=== PATIENT | female | born 1965 | race Caucasian/White ===

== ENCOUNTER → 2016-09-11 | Outpatient (CLI) | payer BC ==
--- NOTE | 2016-09-11 19:13 | CT ---
EXAMINATION TYPE: CT abdomen pelvis w con DATE OF EXAM: 09/11/2016 6:35 PM HISTORY: Right lower quadrant pain x [address] DLP: 571.20mGycm Automated Exposure Control for Dose Reduction was Utilized. CONTRAST: CT scan of the abdomen and pelvis is performed with IV Contrast, patient injected with 100 mL of Omni paque 300. COMPARISON: None. FINDINGS: LUNG BASES: No significant abnormality is appreciated. LIVER/GB: At least 4 hypoattenuated hepatic lesions are seen that are not compatible with simple hepa tic cysts. The largest is seen in segment 5 measuring up to 2.8 cm. There appears to be the beginning of peripheral discontinuous nodular enhancement which suggests hemangiomas, however these are incomp letely characterized. PANCREAS: No significant abnormality is seen. SPLEEN: A focal hypoattenuated splenic lesion is also present within the mid body that could relate t o a lymphangioma, hemangioma, or other etiology. ADRENALS: No significant abnormality is seen. KIDNEYS: No significant abnormality is seen. BOWEL: The appendix is visualized within the right lower quadrant, partially air-filled, and within n ormal limits of size without periappendiceal fat stranding. The appendix measures 6 mm with air inter bimal distending the lumen. There is thickening of the bowel at the rectosigmoid junction with sigmoid diverticula and pericoloni c fat stranding most pronounced on images 73 through 80. There is no adjacent fluid collection or jennifer dence of free air. There is focal short segment bowel wall thickening localized to the pelvis. Remain kal the bowel is nondilated without bowel wall thickening. Significant abnormality is seen. UTERUS/ADNEXA: No gross abnormality seen. LYMPH NODES: No greater than 1cm abdominal or pelvic lymph nodes are appreciated. OSSEOUS STRUCTURES: No significant abnormality is seen. OTHER: No significant additional abnormality is seen. IMPRESSION: 1. Acute uncomplicated diverticulitis at the distal sigmoid (sigmoid rectal junction low-lying within the pelvis). No evidence of adjacent fluid collection or free air. 2. Appendix is within normal limits of size, air-filled, and without periappendiceal fat stranding. 3. Multiple nonspecific hepatic lesions that may represent hepatic hemangiomas but are incompletely c haracterized. Additionally there is a similar splenic lesion. Characterization could be performed wit h dynamic contrast-enhanced CT or MRI on a nonemergent basis.
== END | disposition home or self-care (01) ==
LOC: RADCTMAIN 17:07
PROVIDERS: ATTEND Family Medicine
DX: K57.32 Diverticulitis of large intestine without perforation or abscess without bleeding (principal); D73.89 Other diseases of spleen; K76.89 Other specified diseases of liver
CPT/HCPCS: 74177; Q9967

== ENCOUNTER → 2016-09-28 | Outpatient (CLI) | payer BC | END | disposition home or self-care (01) | LOC: RADMRIMAIN 17:48 | PROVIDERS: ATTEND Family Medicine | DX: Z53.9 Procedure and treatment not carried out, unspecified reason (principal) ==

== ENCOUNTER → 2017-03-21 | Outpatient (CLI) | payer BC ==
--- NOTE | 2017-03-21 11:17 | P.HPOB ---
History of Present Illness H&P Date: 03/21/17 Chief Complaint: The patient is here for her routine gynecologic exam and mammogram. This is a 51-year-old within LMP of 12/2015. She is without gynecologic complaints. She states she was having hot flashes in the past but these have improved. She no longer is experiencing cyclic breast tenderness or cramping. She is status post endometrial ablation and has had very scant or no periods since then. She has not had any vaginal bleeding over the last 14 months. Review of Systems Weight has been stable. She denies respiratory, cardiac, or G.I. problems. Past Medical History Past Medical History: GERD/Reflux Additional Past Medical History / Comment(s): History of Mnire's disease. History of Any Multi-Drug Resistant Organisms: None Reported Past Surgical History: Orthopedic Surgery Additional Past Surgical History / Comment(s): RT BUNION SX. Also history of endometrial ablation in 2006 and upper endoscopy in 2015. 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 She is expecting her 4th grandchild in 04/15. - Past Family History Father Family Medical History: Cancer (Maternal aunt had breast cancer and another maternal aunt had liver cancer.) Additional Family Medical History / Comment(s): PROSTATE Medications and Allergies Home Medications and Allergies Comment(s): She also takes vitamin D supplements 1 daily and vitamin C supplement 1 daily. Home Medications Medication Instructions Recorded Confirmed Type ALPRAZolam [Alprazolam] 0.25 mg PO DIRECTED PRN 02/15/16 02/15/16 History Hydrochlorothiazide 12.5 mg PO DIRECTED PRN 02/15/16 02/15/16 History [Hydrochlorothiazide] Pantoprazole [Protonix] 40 mg PO DAILY 02/15/16 02/15/16 History Allergies Allergy/AdvReac Type Severity Reaction Status Date / Time No Known Allergies Allergy Verified 02/15/16 16:17 Exam - Vital Signs Vital signs: Blood pressure 113/74 height 5 feet 10 1/2 inches weight 168 pounds BMI 23 temperature 98.0 pulse 64. This is a well-developed well-nourished white female who is alert and oriented times 3 in no acute distress. HEENT: Within normal limits. NECK: Supple without mass or thyromegaly. CHEST AND LUNGS: Clear to auscultation. HEART: Regular rate and rhythm. BREASTS: Are without mass or discharge. AXILLARY EXAM: Negative for adenopathy. BACK: Negative for CVA tenderness. ABDOMEN: Soft, nontender, without palpable masses. PELVIC EXAM: Normal external genitalia . Cervix and vagina appear normal . There is no unusual discharge. There is no evidence of prolapse. The uterus is midposition, nongravid size and nontender. There are no palpable adnexal masses or tenderness. RECTAL EXAM: negative for mass or tenderness and is negative for occult blood. EXTREMITIES: Nontender. IMPRESSION: 1. 51 year old female with normal gynecologic exam 2. Amenorrhea which probably represents early menopause. This also may represent amenorrhea secondary to the endometrial ablation. PLAN: 1. Pap smear was deferred since she had a normal one last year. 2. Self breast examination was discussed. 3. Mammogram will be done today. 4. FSH will be drawn today. She is also requesting screening labs be done. This will include cholesterol, comprehensive chemistry panel, CBC and TSH. 5. Osteoporosis prevention was discussed. 6. She will return in one year.
[2017-03-21 12:28] LABS: CH 30.3; CHCM 33.2; HCT 42.2 % (34.0-46.0); HDW 2.35; HGB 13.7 gm/dL (11.4-16.0); MCH 29.7 pg (25.0-35.0); MCHC 32.5 g/dL (31.0-37.0); MCV 91.5 fL (80.0-100.0); Mean Platelet Volume 7.6; RBC 4.61 m/uL (3.80-5.40); RDW 12.2 % (11.5-15.5); WBC 5.4 k/uL (3.8-10.6)
[2017-03-21 12:47] LABS: ALT 30 U/L (9-52); AST 19 U/L (14-36); Alkaline Phosphatase 57 U/L (38-126); Anion Gap 7 mmol/L; Blood Urea Nitrogen 21 mg/dL (7-17); Calcium 9.6 mg/dL (8.4-10.2); Carbon Dioxide 33 mmol/L (22-30); Chloride 101 mmol/L (98-107); Cholesterol 250 mg/dL (<200); Glucose 87 mg/dL (74-99); Non-African American GFR(MDRD) >60 (>60 ml/min/1.73 sqM); Potassium 4.6 mmol/L (3.5-5.1); Sodium 141 mmol/L (137-145); Total Bilirubin 0.8 mg/dL (0.2-1.3); Total Protein 7.1 g/dL (6.3-8.2)
--- NOTE | 2017-03-26 07:28 | MM ---
Reason for exam: screening (asymptomatic). Last mammogram was performed 1 year ago. History: Patient is postmenopausal. Family history of breast cancer in paternal grandmother at age 55 and breast cancer in maternal aunt. Physical Findings: A clinical breast exam by your physician is recommended on an annual basis and results should be correlated with mammographic findings. MG 3D Screening Mammo W/Cad Bilateral CC and MLO view(s) were taken. Prior study comparison: March 07, 2016, bilateral MG 3d screening mammo w/cad. March 03, 2015, bilateral MG 3d screening mammo w/cad. January 09, 2014, right breast US breast workup RT. The breast tissue is heterogeneously dense. This may lower the sensitivity of mammography. Finding: There are stable typically benign masses in both breasts. No suspicious abnormality. No significant changes in finding since March 07, 2016, March 03, 2015, and January 09, 2014. ASSESSMENT: Benign, BI-RAD 2 RECOMMENDATION: Routine screening mammogram of both breasts in 1 year.
== END | disposition home or self-care (01) ==
LOC: WWCWWP 10:00
PROVIDERS: ATTEND Obstetrics & Gynecology
DX: Z12.31 Encounter for screening mammogram for malignant neoplasm of breast (principal); Z00.00 Encounter for general adult medical examination without abnormal findings; N91.1 Secondary amenorrhea
CPT/HCPCS: 80053; 84443; 83001; 82465; 85027; 77063; G0202

== ENCOUNTER → 2018-04-02 | Outpatient (CLI) | payer BC ==
[2018-04-02 08:58] VITALS: BP 109/52; PULSE 56; TEMP 96.7; BMI 23.5
--- NOTE | 2018-04-02 09:29 | P.HPOB ---
History of Present Illness H&P Date: 04/02/18 Chief Complaint: The patient is here for her routine gynecologic exam and mammogram. This is a 52-year-old with an LMP of 2016. The patient states her hot flashes continue to improve, but she does have some infrequently. She denies any postmenopausal bleeding. She is without gynecologic complaints. Review of Systems The patient has lost 4 pounds over the last year. She denies respiratory, cardiac, or G.I. problems. Past Medical History Past Medical History: GERD/Reflux Additional Past Medical History / Comment(s): History of Mnire's disease. History of Any Multi-Drug Resistant Organisms: None Reported Past Surgical History: Orthopedic Surgery Additional Past Surgical History / Comment(s): RT BUNION SX. Also history of endometrial ablation in 2006 and upper endoscopy in 2015. 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 She has 4 grandchildren. - Past Family History Father Family Medical History: Cancer Additional Family Medical History / Comment(s): PROSTATE Sister(s) Family Medical History: Myocardial Infarction ([place]) Mother Family Medical History: No Reported History Additional Family Medical History / Comment(s): 1 maternal aunt had breast cancer and another maternal aunt had liver cancer. Medications and Allergies Home Medications Medication Instructions Recorded Confirmed Type Hydrochlorothiazide 12.5 mg PO DIRECTED PRN 02/15/16 04/02/18 History Allergies Allergy/AdvReac Type Severity Reaction Status Date / Time No Known Allergies Allergy Verified 04/02/18 08:50 Exam Vital Signs Temp Pulse BP 04/02/18 08:53 96.7 F L 56 L 109/52 Intake and Output 04/01/18 04/02/18 04/02/18 22:59 06:59 14:59 Other: Weight 74.389 kg Height 5'10", weight 164 pounds, BMI 23.5. This is a well-developed well-nourished white female who is alert and oriented times 3 in no acute distress. HEENT: Within normal limits. NECK: Supple without mass or thyromegaly. CHEST AND LUNGS: Clear to auscultation. HEART: Regular rate and rhythm. BREASTS: Are without mass or discharge. AXILLARY EXAM: Negative for adenopathy. BACK: Negative for CVA tenderness. ABDOMEN: Soft, nontender, without palpable masses. PELVIC EXAM: Normal external genitalia. Cervix and vagina appear normal. There is no unusual discharge. There is no evidence of prolapse. The uterus is midposition, nongravid size and nontender. There are no palpable adnexal masses or tenderness. RECTAL EXAM: rectovaginal exam is negative for mass or tenderness and is negative for occult blood. EXTREMITIES: Nontender. IMPRESSION: 1. 52-year-old menopausal female with normal gynecologic exam. PLAN: 1. Pap smear was performed. 2. Self breast awareness was discussed with the patient. 3. Screening mammogram will be done today. 4. I have recommended screening colonoscopy based on her age. She will speak with her primary caregiver about this. 5. Osteoporosis prevention was discussed. I have stressed the importance of adequate calcium, vitamin D and regular exercise. Recommended amounts of calcium and vitamin D were also discussed. 6. She will return in one year.
--- NOTE | 2018-04-03 08:16 | MM ---
Reason for exam: screening (asymptomatic). Last mammogram was performed 1 year ago. History: Patient is postmenopausal. Family history of breast cancer in paternal grandmother at age 55 and breast cancer in maternal aunt. Physical Findings: A clinical breast exam by your physician is recommended on an annual basis and results should be correlated with mammographic findings. MG 3D Screening Mammo W/Cad Bilateral CC and MLO view(s) were taken. Prior study comparison: March 21, 2017, bilateral MG 3d screening mammo w/cad. March 07, 2016, bilateral MG 3d screening mammo w/cad. The breast tissue is heterogeneously dense. This may lower the sensitivity of mammography. There is chronic nodularity in the right breast. No significant changes when compared with prior studies. ASSESSMENT: Benign, BI-RAD 2 RECOMMENDATION: Routine screening mammogram of both breasts in 1 year.
--- NOTE | 2018-04-09 17:21 | P.PN ---
Progress Note - Text Progress Note Date: 04/09/18 OUTPATIENT FOLLOW-UP NOTE TEST(S)/RESULTS: test results from 04/02/2018 include negative Pap smear and benign mammogram. METHOD OF NOTIFICATION: the patient was notified by phone. PATIENT COMMENTS: the patient had questions about dense breast tissue as noted on her mammogram. DIAGNOSIS: negative Pap smear and benign mammogram. DISCUSSION: I have recommended that she continue yearly mammograms and this may be best done with 3-D mammography with her dense breast tissue. I am not recommending any other breast screening at this time for dense breast tissue. PLAN: she is to return in one year for her annual well woman exam.
== END ==
LOC: WWCWWP 08:27
PROVIDERS: ATTEND Obstetrics & Gynecology
DX: Z12.31 Encounter for screening mammogram for malignant neoplasm of breast (principal)
CPT/HCPCS: 77063; 77067

== ENCOUNTER 2018-11-20 09:18 | Day surgery (SDC) | payer BC ==
[2018-11-18 11:52] VITALS: BMI 23.4
[~2018-11-20 09:18] MED LIST: LACTATED RINGERS 1,000 ML IV SCH; LIDOCAINE 1% 20 ML VIAL (10MG/ML) FOR IV START INTRADERMA PRN
[2018-11-20 10:09] VITALS: TEMP 98
[2018-11-20] MEDS ORDERED: LIDOCAINE 1% INJ 10MG/ML (20 ML MDV) ONE (10:38)
[2018-11-20] MEDS ORDERED: PROPOFOL 10 MG/ML 20 ML VIAL IV ONE (10:38)
--- NOTE | 2018-11-20 10:57 | P.PCN ---
Date of Procedure: 11/20/18 Procedure(s) Performed: BRIEF HISTORY: Patient is a 53-year-old pleasant white female, scheduled for an elective colonoscopy as a part of screening for colon cancer. PROCEDURE PERFORMED: Colonoscopy with snare polypectomy. PREOPERATIVE DIAGNOSIS: Screening for colon cancer. IV sedation per Anesthesia. PROCEDURE: After informed consent was obtained, the patient, was brought into the endoscopy unit. IV sedation was administered by Anesthesia under continuous monitoring. Digital rectal examination was normal. Initially the Olympus CF-160 flexible video colonoscope was then inserted in the rectum, gradually advanced into the cecum without any difficulty. Careful examination was performed as the scope was gradually being withdrawn. Ileocecal valve and the appendiceal orifice were visualized and appeared normal. Prep was excellent. Mucosa of the cecum, ascending colon, appeared normal. In the hepatic flexure there was a 1 cm broad-based polyp that was removed by snare polypectomy. Rest of the transverse colon, descending colon, sigmoid colon, and rectum appeared normal. Retroflexion was performed in the rectum and no lesions were seen. The patient tolerated the procedure well. IMPRESSION: 1 cm hepatic flexure polyp status post polypectomy Rest of the colon appeared normal RECOMMENDATIONS: Findings of this examination were discussed with the patient as well as a family. She was advised to follow with the biopsy results. The biopsy shows an adenoma, she can have a repeat colonoscopy in 3-5 years.
[2018-11-20 11:04] VITALS: RESP 16
[2018-11-20 11:32] VITALS: BP 106/70; PULSE 56
== END 2018-11-20 11:42 | disposition home or self-care (01) ==
LOC: ORWHC2ENDO 09:18
PROVIDERS: ATTEND Internal Medicine Gastroenterology
DX: Z12.11 Encounter for screening for malignant neoplasm of colon (principal); D12.3 Benign neoplasm of transverse colon; Z79.899 Other long term (current) drug therapy; H81.09 Meniere's disease, unspecified ear
CPT/HCPCS: 81025; 45385; J2001; J2704; 88305

== ENCOUNTER → 2019-05-13 | Outpatient (CLI) | payer BC ==
[2019-05-13 09:02] VITALS: BP 132/79; PULSE 52; RESP 16; TEMP 98.1
--- NOTE | 2019-05-13 09:30 | P.HPOB ---
History of Present Illness H&P Date: 05/13/19 Chief Complaint: The patient is here for her routine gynecologic exam and ma mmogram. This is a 53-year-old with an LMP of 2016. The patient is without gynecologic complaints. She states her hot flashes are decreasing and are very infrequent and mild. She denies any postmenopausal bleeding. Review of Systems The patient's weight has been stable over the last year. She denies respiratory, cardiac, or G.I. problems. Past Medical History Past Medical History: GERD/Reflux Additional Past Medical History / Comment(s): History of Mnire's disease. 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 History of Any Multi-Drug Resistant Organisms: None Reported Past Surgical History: Orthopedic Surgery Additional Past Surgical History / Comment(s): RT BUNION SX, endometrial ablation, EGD. 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 She has 6 grandchildren. - Past Family History Father Family Medical History: Cancer Additional Family Medical History / Comment(s): PROSTATE Cancer. Sister(s) Family Medical History: Myocardial Infarction ([place]) Mother Family Medical History: No Reported History Additional Family Medical History / Comment(s): 1 maternal aunt had breast cancer and another maternal aunt had liver cancer. Medications and Allergies Home Medications Medication Instructions Recorded Confirmed Type Hydrochlorothiazide 12.5 mg PO QAM 02/15/16 05/13/19 History Cholecalciferol (Vitamin D3) 2,000 unit PO DAILY 05/13/19 05/13/19 History [Vitamin D3] Cyanocobalamin [Vitamin B-12] 500 mcg PO DAILY 05/13/19 05/13/19 History Multivitamin [Multivitamins Adult 1 each PO DAILY 05/13/19 05/13/19 History Gummies] Allergies Allergy/AdvReac Type Severity Reaction Status Date / Time No Known Allergies Allergy Verified 05/13/19 09:02 Exam Vital Signs Temp Pulse Resp BP Pulse Ox 05/13/19 09:00 98.1 F 52 L 16 132/79 100 Intake and Output 05/12/19 05/13/19 05/13/19 22:59 06:59 14:59 Other: Weight 74.843 kg Height 5 feet 10 inches, weight 165 pounds, BMI 23.7. This is a well-developed well-nourished white female who is alert and oriented times 3 in no acute distress. HEENT: Within normal limits. NECK: Supple without mass or thyromegaly. CHEST AND LUNGS: Clear to auscultation. HEART: Regular rate and rhythm. BREASTS: Are without mass or discharge. AXILLARY EXAM: Negative for adenopathy. BACK: Negative for CVA tenderness. ABDOMEN: Soft, nontender, without palpable masses. PELVIC EXAM: Normal external genitalia with minimal atrophy. Cervix and vagina appear normal is minimal atrophy. There is no unusual discharge. There is no evidence of prolapse. The uterus is midposition, nongravid size and nontender. There are no palpable adnexal masses or tenderness. RECTAL EXAM: Rectovaginal exam is negative for mass or tenderness and is negative for occult blood. EXTREMITIES: Nontender. IMPRESSION: 1. 53-year-old menopausal female with normal gynecologic exam. PLAN: 1. Pap smear was deferred since she had a normal one on 04/02/2018. 2. Self breast awareness was discussed with the patient. 3. Screening mammogram will be done today. 4. Osteoporosis prevention was discussed. I have stressed the importance of adequate calcium, vitamin D and regular exercise. Recommended amounts of calcium and vitamin D were also discussed. 5. She was advised to return in one year for her annual well woman exam.
--- NOTE | 2019-05-14 11:52 | MM ---
Reason for exam: screening (asymptomatic). Last mammogram was performed 1 year and 1 month ago. History: Patient is postmenopausal. Family history of breast cancer in paternal grandmother at age 55 and breast cancer in maternal aunt. Physical Findings: A clinical breast exam by your physician is recommended on an annual basis and results should be correlated with mammographic findings. MG 3D Screening Mammo W/Cad Bilateral CC and MLO view(s) were taken. Prior study comparison: April 02, 2018, bilateral MG 3d screening mammo w/cad. March 21, 2017, bilateral MG 3d screening mammo w/cad. The breast tissue is heterogeneously dense. This may lower the sensitivity of mammography. There are benign appearing round calcifications in the right breast. There is chronic nodularity in the right breast. There is no discrete abnormality. ASSESSMENT: Benign, BI-RAD 2 RECOMMENDATION: Routine screening mammogram of both breasts in 1 year.
== END | disposition home or self-care (01) ==
LOC: WWCWWP 08:33
PROVIDERS: ATTEND Obstetrics & Gynecology
DX: Z12.31 Encounter for screening mammogram for malignant neoplasm of breast (principal)
CPT/HCPCS: 77063; 77067

== ENCOUNTER → 2020-07-21 | Outpatient (CLI) | payer BC ==
[2020-07-21 08:05] VITALS: BP 129/74; PULSE 58; RESP 16; TEMP 98
--- NOTE | 2020-07-21 08:50 | P.HPOB ---
History of Present Illness H&P Date: 07/21/20 Chief Complaint: The patient is here for her routine gynecologic exam and ma mmogram. This is a 55-year-old with an LMP of 2016. The patient has been experiencing sore breasts when she holds somebody or when the breasts are touched. She denies feeling any abnormal lumps and also denies any leaking or bleeding from the nipples. She does not take hormone replacement therapy or any supplements for menopausal symptoms. She denies any trauma to the breasts. She is otherwise without complaints and denies any postmenopausal bleeding. Review of Systems The patient has gained 5 pounds over the last year. She denies respiratory, cardiac, or G.I. problems. Past Medical History Past Medical History: GERD/Reflux Additional Past Medical History / Comment(s): History of Mnire's disease. 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 History of Any Multi-Drug Resistant Organisms: None Reported Past Surgical History: Orthopedic Surgery Additional Past Surgical History / Comment(s): BL BUNION SX and foot surgery, endometrial ablation, EGD. 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 She has 7 grandchildren. - Past Family History Father Family Medical History: Cancer Additional Family Medical History / Comment(s): PROSTATE Cancer. Sister(s) Family Medical History: Myocardial Infarction ([place]) Mother Family Medical History: No Reported History Additional Family Medical History / Comment(s): 1 maternal aunt had breast cancer and another maternal aunt had liver cancer. Medications and Allergies Home Medications Medication Instructions Recorded Confirmed Type hydroCHLOROthiazide 12.5 mg PO QAM 02/15/16 07/21/20 History [Hydrochlorothiazide] Cholecalciferol (Vitamin D3) 2,000 unit PO DAILY 05/13/19 07/21/20 History [Vitamin D3] Cyanocobalamin [Vitamin B-12] 500 mcg PO DAILY 05/13/19 07/21/20 History Multivitamin [Multivitamins Adult 1 each PO DAILY 05/13/19 07/21/20 History Gummies] Allergies Allergy/AdvReac Type Severity Reaction Status Date / Time No Known Allergies Allergy Verified 07/21/20 07:58 Exam Vital Signs Temp Pulse Resp BP Pulse Ox 07/21/20 07:59 98.0 F 58 L 16 129/74 99 Intake and Output 07/20/20 07/21/20 07/21/20 22:59 06:59 14:59 Other: Weight 77.111 kg Height 5 feet 11 inches, weight 170 pounds, BMI 23.7. This is a well-developed well-nourished white female who is alert and oriented times 3 in no acute distress. HEENT: Within normal limits. NECK: Supple without mass or thyromegaly. CHEST AND LUNGS: Clear to auscultation. HEART: Regular rate and rhythm. BREASTS: Are without mass or discharge. There is no dimpling and the breasts are nontender. AXILLARY EXAM: Negative for adenopathy. BACK: Negative for CVA tenderness. ABDOMEN: Soft, nontender, without palpable masses. PELVIC EXAM: Normal external genitalia with minimal atrophy. Cervix and vagina appear normal and minimal atrophy. There is no unusual discharge. There is no evidence of prolapse. The uterus is midposition, nongravid size and nontender. There are no palpable adnexal masses or tenderness. RECTAL EXAM: Rectovaginal exam is negative for mass or tenderness and is negative for occult blood. EXTREMITIES: Nontender. IMPRESSION: 1. 55-year-old menopausal female with normal gynecologic exam. 2. Recent bilateral breast soreness with no significant physical findings on exam today. PLAN: 1. Pap smear cotest was performed. 2. Self breast awareness was discussed with the patient. She states she does drink coffee each morning. I have discussed that she could try to avoid caffeine altogether to see if this helps with the breast soreness. I have tried to reassure her that breast soreness is not common symptom of breast cancer. 3. Screening mammogram will be done today. 4. Osteoporosis prevention was discussed. I have stressed the importance of adequate calcium, vitamin D and regular exercise. Recommended amounts of calcium and vitamin D were also discussed. 5. She was advised to return in one year for her annual well woman exam.
--- NOTE | 2020-07-21 13:25 | MM ---
Reason for exam: screening (asymptomatic). Last mammogram was performed 1 year and 2 months ago. History: Patient is postmenopausal. Family history of breast cancer in paternal grandmother at age 55 and breast cancer in maternal aunt. Physical Findings: A clinical breast exam by your physician is recommended on an annual basis and results should be correlated with mammographic findings. MG 3D Screening Mammo W/Cad Bilateral CC and MLO view(s) were taken. Prior study comparison: May 13, 2019, bilateral MG 3d screening mammo w/cad. April 02, 2018, bilateral MG 3d screening mammo w/cad. The breast tissue is heterogeneously dense. This may lower the sensitivity of mammography. Focal asymmetry lower outer quadrant left breast zone C. ASSESSMENT: Incomplete: need additional imaging evaluation, BI-RAD 0 RECOMMENDATION: Special view mammogram of the left breast. If lesion persists on supplemental views, image directed ultrasound is recommended. [facility] will attempt to contact patient to return for supplemental views and ultrasound if indicated.
== END ==
LOC: WWCWWP 07:49
PROVIDERS: ATTEND Obstetrics & Gynecology
DX: Z12.31 Encounter for screening mammogram for malignant neoplasm of breast (principal)
CPT/HCPCS: 77063; 77067

== ENCOUNTER → 2020-07-30 | Outpatient (CLI) | payer BC ==
--- NOTE | 2020-07-30 13:26 | MM ---
Reason for exam: additional evaluation requested from abnormal screening. Last mammogram was performed less than 1 month ago. History: Patient is postmenopausal. Family history of breast cancer in paternal grandmother at age 55 and breast cancer in maternal aunt. Physical Findings: Nurse did not find any significant physical abnormalities on exam. MG 3D Work Up W/Cad LT Spot compression CC, spot compression MLO, and LM view(s) were taken of the left breast. Prior study comparison: July 21, 2020, bilateral MG 3d screening mammo w/cad. May 13, 2019, bilateral MG 3d screening mammo w/cad. The breast tissue is heterogeneously dense. This may lower the sensitivity of mammography. No persisting abnormality in the upper outer quadrant on additional views. These results were verbally communicated with the patient and result sheet given to the patient on 07/30/20. ASSESSMENT: Negative, BI-RAD 1 RECOMMENDATION: Return to routine screening mammogram schedule for both breasts.
== END | disposition home or self-care (01) ==
LOC: RADMAMWWP 07:28
PROVIDERS: ATTEND Obstetrics & Gynecology
DX: R92.2 Inconclusive mammogram (principal); Z78.0 Asymptomatic menopausal state; Z80.3 Family history of malignant neoplasm of breast
CPT/HCPCS: 77061; 77065

== ENCOUNTER → 2021-08-30 | Outpatient (CLI) | payer BC ==
[2021-08-30 14:17] VITALS: BP 125/78; PULSE 66; RESP 17; TEMP 97.8
--- NOTE | 2021-08-30 14:47 | P.HPOB ---
History of Present Illness H&P Date: 08/30/21 Chief Complaint: The patient is here for her routine gynecologic exam and ma mmogram. This is a 56-year-old with an LMP of 2016. The patient is without gynecologic complaints and denies any postmenopausal bleeding. Review of Systems The patient has lost 6 pounds over the last year. She denies respiratory, cardiac, or G.I. problems. Past Medical History Past Medical History: GERD/Reflux Additional Past Medical History / Comment(s): History of Mnire's disease. 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 History of Any Multi-Drug Resistant Organisms: None Reported Past Surgical History: Orthopedic Surgery Additional Past Surgical History / Comment(s): BL BUNION SX and foot surgery, endometrial ablation, EGD. 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 - Past Family History Father Family Medical History: Cancer Additional Family Medical History / Comment(s): PROSTATE Cancer. Sister(s) Family Medical History: Myocardial Infarction ([place]) Mother Family Medical History: No Reported History Additional Family Medical History / Comment(s): 1 maternal aunt had breast cancer and another maternal aunt had liver cancer. Medications and Allergies Home Medications Medication Instructions Recorded Confirmed Type hydroCHLOROthiazide 12.5 mg PO QAM 02/15/16 08/30/21 History [Hydrochlorothiazide] Cholecalciferol (Vitamin D3) 2,000 unit PO DAILY 05/13/19 08/30/21 History [Vitamin D3] Cyanocobalamin [Vitamin B-12] 500 mcg PO DAILY 05/13/19 08/30/21 History Multivitamin [Multivitamins Adult 1 each PO DAILY 05/13/19 08/30/21 History Gummies] Allergies Allergy/AdvReac Type Severity Reaction Status Date / Time No Known Allergies Allergy Verified 08/30/21 14:13 Exam Vital Signs Temp Pulse Resp BP Pulse Ox 08/30/21 14:15 97.8 F 66 17 125/78 99 Intake and Output 08/29/21 08/30/21 08/30/21 22:59 06:59 14:59 Other: Weight 74.389 kg Height 5 feet 10 inches, weight 164 pounds, BMI 23.5. This is a well-developed well-nourished white female who is alert and oriented times 3 in no acute distress. HEENT: Within normal limits. NECK: Supple without mass or thyromegaly. CHEST AND LUNGS: Clear to auscultation. HEART: Regular rate and rhythm. BREASTS: Are without mass or discharge. AXILLARY EXAM: Negative for adenopathy. BACK: Negative for CVA tenderness. ABDOMEN: Soft, nontender, without palpable masses. PELVIC EXAM: Normal external genitalia with minimal atrophy. Cervix and vagina appear normal with minimal atrophy. There is no unusual discharge. There is no evidence of prolapse. The uterus is midposition, nongravid size and nontender. There are no palpable adnexal masses or tenderness. RECTAL EXAM: Rectovaginal exam is negative for mass or tenderness and is negative for occult blood. EXTREMITIES: Nontender. IMPRESSION: 1. 56-year-old menopausal female with normal gynecologic exam. PLAN: 1. Pap smear was deferred since she had a negative Pap smear cotest on 07/21/2020. 2. Self breast awareness was discussed with the patient. We have also discussed symptoms associated with inflammatory breast cancer. 3. Screening mammogram will be done today. 4. Osteoporosis prevention was discussed. I have stressed the importance of adequate calcium, vitamin D and regular exercise. Recommended amounts of calcium and vitamin D were also discussed. 5. She was advised to return in one year for her annual well woman exam.
--- NOTE | 2021-09-02 09:42 | MM ---
Reason for exam: screening (asymptomatic). Last mammogram was performed 1 year and 1 month ago. History: Patient is postmenopausal. Family history of breast cancer in paternal grandmother at age 55 and breast cancer in maternal aunt. Physical Findings: A clinical breast exam by your physician is recommended on an annual basis and results should be correlated with mammographic findings. MG 3D Screening Mammo W/Cad Bilateral CC and MLO view(s) were taken. Prior study comparison: July 30, 2020, left breast MG 3d work up w/cad LT. July 21, 2020, bilateral MG 3d screening mammo w/cad. There are scattered fibroglandular densities. There is chronic nodularity in the right breast. No significant changes when compared with prior studies. ASSESSMENT: Benign, BI-RAD 2 RECOMMENDATION: Routine screening mammogram of both breasts in 1 year.
== END | disposition home or self-care (01) ==
LOC: RADMAMWWP 13:52
PROVIDERS: ATTEND Obstetrics & Gynecology
DX: Z12.31 Encounter for screening mammogram for malignant neoplasm of breast (principal)
CPT/HCPCS: 77063; 77067

== ENCOUNTER → 2022-10-10 | Outpatient (CLI) | payer BC ==
[2022-10-10 08:08] VITALS: BP 118/53; PULSE 74; RESP 18; TEMP 97.8
--- NOTE | 2022-10-10 08:31 | P.HPOB ---
History of Present Illness H&P Date: 10/10/22 Chief Complaint: The patient is here for her routine gynecologic exam and ma mmogram. This is a 57-year-old with an LMP of 2016. The patient is without gynecologic complaints and denies any postmenopausal bleeding. She occasionally will notice a hot flashes at night but this is not a big problem for her. Review of Systems The patient's weight has been stable over the last year. She denies respiratory, cardiac, or G.I. problems. Past Medical History Past Medical History: GERD/Reflux Additional Past Medical History / Comment(s): History of Mnire's disease. Hiatal hernia. 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 History of Any Multi-Drug Resistant Organisms: None Reported Past Surgical History: Orthopedic Surgery Additional Past Surgical History / Comment(s): BL BUNION SX and foot surgery, endometrial ablation, EGD. Colonoscopy 2018(next after 5yr). Upper endoscopy 2022. 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 - Past Family History Father Family Medical History: Cancer Additional Family Medical History / Comment(s): PROSTATE Cancer. Sister(s) Family Medical History: Myocardial Infarction ([place]) Mother Family Medical History: No Reported History Additional Family Medical History / Comment(s): 1 maternal aunt had breast cancer and another maternal aunt had liver cancer. Medications and Allergies Home Medications Medication Instructions Recorded Confirmed Type hydroCHLOROthiazide 12.5 mg PO QAM 02/15/16 10/10/22 History [Hydrochlorothiazide] Cholecalciferol (Vitamin D3) 2,000 unit PO DAILY 05/13/19 10/10/22 History [Vitamin D3] Cyanocobalamin [Vitamin B-12] 500 mcg PO DAILY 05/13/19 10/10/22 History Multivitamin [Multivitamins Adult 1 each PO DAILY 05/13/19 10/10/22 History Gummies] Atorvastatin [Lipitor] 10 mg PO HS 10/10/22 10/10/22 History Allergies Allergy/AdvReac Type Severity Reaction Status Date / Time No Known Allergies Allergy Verified 10/10/22 08:02 Exam Vital Signs Temp Pulse Resp BP Pulse Ox 10/10/22 08:03 97.8 F 74 18 118/53 98 Intake and Output 10/09/22 10/10/22 10/10/22 22:59 06:59 14:59 Other: Weight 73.482 kg Height 5 feet 10-1/2 inches, weight 162 pounds, BMI 22.9. This is a well-developed well-nourished white female who is alert and oriented times 3 in no acute distress. HEENT: Within normal limits. NECK: Supple without mass or thyromegaly. CHEST AND LUNGS: Clear to auscultation. HEART: Regular rate and rhythm. BREASTS: Are without mass or discharge. AXILLARY EXAM: Negative for adenopathy. BACK: Negative for CVA tenderness. ABDOMEN: Soft, nontender, without palpable masses. PELVIC EXAM: Normal external genitalia. Cervix and vagina appear normal. There is no unusual discharge. There is no evidence of prolapse. The uterus is midposition, nongravid size and nontender. There are no palpable adnexal masses or tenderness. RECTAL EXAM: Rectovaginal exam is negative for mass or tenderness and is negative for occult blood. EXTREMITIES: Nontender. IMPRESSION: 1. 57-year-old menopausal female with normal gynecologic exam. PLAN: 1. Pap smear was deferred since she had a negative Pap smear cotest on 07/21/2020. 2. Breast awareness was discussed with the patient. The symptoms associated with inflammatory breast cancer was also discussed. 3. Screening mammogram will be done today. 4. Osteoporosis prevention was discussed. I have stressed the importance of adequate calcium, vitamin D and regular exercise. Recommended amounts of calcium and vitamin D were also discussed. 5. She was advised to return in one year for her annual well woman exam.
--- NOTE | 2022-10-11 08:53 | MM ---
Reason for Exam: Screening (asymptomatic). Last mammogram was performed 1 year(s) and 1 month(s) ago. Patient History: Menarche at age 16. First Full-Term at age 21. Postmenopausal. Patient has history of breast feeding. Paternal grandmother had breast cancer, age 55. Maternal aunt had breast cancer, age 56. Risk Values: Renata 5 year model risk: 0.8%. NCI Lifetime model risk: 5.5%. Prior Study Comparison: 07/21/2020 Bilateral Screening Mammogram, [facility]. 07/30/2020 Left Diagnostic Mammogram, [facility]. 08/30/2021 Bilateral Screening Mammogram, [facility]. Tissue Density: The breast tissue is heterogeneously dense. This may lower the sensitivity of mammography. Findings: Analyzed By CAD. There is no suspicious group of microcalcifications or new suspicious mass in either breast. Overall Assessment: Benign, BI-RAD 2 Management: Screening Mammogram of both breasts in 1 year. . Patient should continue monthly self-breast exams. A clinical breast exam by your physician is recommended on an annual basis. This exam should not preclude additional follow-up of suspicious palpable abnormalities. Note on Renata scores and lifetime risk: 1. A Renata score greater than 3% is considered moderate risk. If this is the case, consider specialist referral to assess eligibility for a risk reducing agent. 2. If overall lifetime risk for the development of breast cancer is 20% or higher, the patient may qualify for future screening with alternating mammogram and breast MRI. Electronically signed and approved by: Jayesh Palacios M.D. Radiologis
== END ==
LOC: WWCWWP 07:49
PROVIDERS: ATTEND Obstetrics & Gynecology
DX: Z12.31 Encounter for screening mammogram for malignant neoplasm of breast (principal); Z01.411 Encounter for gynecological examination (general) (routine) with abnormal findings; K21.9 Gastro-esophageal reflux disease without esophagitis
CPT/HCPCS: 77063; 77067

== ENCOUNTER → 2023-10-31 | Outpatient (CLI) | payer BC ==
[2023-10-31 08:14] VITALS: BP 118/79; PULSE 71; RESP 16; TEMP 98
--- NOTE | 2023-10-31 08:40 | P.HPOB ---
History of Present Illness H&P Date: 10/31/23 Chief Complaint: The patient is here for her routine gynecologic exam and ma mmogram. This is a 58-year-old G4, P4 with an LMP of 2016. Patient is without gynecologic complaints. She has noticed some joint discomfort and was wondering if this is related to her menopause. Review of Systems The patient has gained 11 pounds over the last year. She denies respiratory, cardiac, or G.I. problems. Musculoskeletal: She has been having some joint d iscomfort. She has seen a bog cutter regarding this. Past Medical History Past Medical History: GERD/Reflux Additional Past Medical History / Comment(s): History of Mnire's disease. Hiatal hernia. 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 History of Any Multi-Drug Resistant Organisms: None Reported Past Surgical History: Orthopedic Surgery Additional Past Surgical History / Comment(s): BL BUNION SX and foot surgery, endometrial ablation, EGD. Colonoscopy 2018(next after 5yr). Upper endoscopy 2022. 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 - Past Family History Father Family Medical History: Cancer Additional Family Medical History / Comment(s): PROSTATE Cancer. Sister(s) Family Medical History: Myocardial Infarction ([place]) Mother Family Medical History: No Reported History Additional Family Medical History / Comment(s): 1 maternal aunt had breast cancer and another maternal aunt had liver cancer. Medications and Allergies Home Medications Medication Instructions Recorded Confirmed Type hydroCHLOROthiazide 12.5 mg PO QAM 02/15/16 10/10/22 History [Hydrochlorothiazide] Cholecalciferol (Vitamin D3) 2,000 unit PO DAILY 05/13/19 10/10/22 History [Vitamin D3] Cyanocobalamin [Vitamin B-12] 500 mcg PO DAILY 05/13/19 10/10/22 History Multivitamin [Multivitamins Adult 1 each PO DAILY 05/13/19 10/10/22 History Gummies] Atorvastatin [Lipitor] 10 mg PO HS 10/10/22 10/10/22 History Allergies Allergy/AdvReac Type Severity Reaction Status Date / Time No Known Allergies Allergy Verified 10/31/23 08:08 Exam Vital Signs Temp Pulse Resp BP Pulse Ox 10/31/23 08:10 98 F 71 16 118/79 97 Intake and Output 10/30/23 10/31/23 10/31/23 22:59 06:59 14:59 Other: Weight 78.471 kg Height 5 feet 11 inches, weight 173 pounds, BMI 24.1 This is a well-developed well-nourished white female who is alert and oriented times 3 in no acute distress. HEENT: Within normal limits. NECK: Supple without mass or thyromegaly. CHEST AND LUNGS: Clear to auscultation. HEART: Regular rate and rhythm. BREASTS: Are without mass or discharge. AXILLARY EXAM: Negative for adenopathy. BACK: Negative for CVA tenderness. ABDOMEN: Soft, nontender, without palpable masses. PELVIC EXAM: Normal external genitalia with minimal atrophy. Cervix and vagina appear normal with minimal atrophy. There is no unusual discharge. There is no evidence of prolapse. The uterus is midposition, nongravid size and nontender. There are no palpable adnexal masses or tenderness. RECTAL EXAM: Rectovaginal exam is negative for mass or tenderness and is negative for occult blood. EXTREMITIES: Nontender. IMPRESSION: 1. 58-year-old menopausal female with normal gynecologic exam. PLAN: 1. Pap smear was deferred since she had a negative Pap smear cotest on 07/21/2020 2. Self breast awareness was discussed with the patient. We have also discussed symptoms associated with inflammatory breast cancer. 3. Screening mammogram will be done today. 4. Osteoporosis prevention was discussed. I have stressed the importance of adequate calcium, vitamin D and regular exercise. Recommended amounts of calcium and vitamin D were also discussed. 5. She is due for her colonoscopy and will discuss this with her PCP to have this arranged. 6. She was advised to return in one year for her annual well woman exam.
== END ==
LOC: WWCWWP 07:57
PROVIDERS: ATTEND Obstetrics & Gynecology
DX: Z12.31 Encounter for screening mammogram for malignant neoplasm of breast (principal); Z78.0 Asymptomatic menopausal state; Z80.3 Family history of malignant neoplasm of breast
CPT/HCPCS: 77063; 77067